=== PATIENT | male | born 1955 | race African-American/Black ===

== ENCOUNTER 2024-08-29 14:33 | Inpatient (IN) | payer BC, MEDICAID ==
[~2024-08-29] VITALS: Ht 200.7 cm; Wt 164.7 kg
[~2024-08-29 14:33] MED LIST: ALBU2.5V13 PO; ALLO300T2 PO; AMI2 PO; APIX5TAB PO; COLC0.6T66 PO; EMPA25TA PO; FURO80TA3 MT; IBUP-2030 MT; INSU100I13 SUBCUT; INSU100I28 SQ; METO2.5T2 PO; POTA-204 PO; SACU1TAB7 PO
[2024-08-29 15:14] LABS: BASOPHILS % 1.5 % (0.0-2.0); DIFFERENTIAL COMMENT 0; EOSINOPHILS % 1.1 % (0.0-5.0); HEMATOCRIT. 47.3 % (42.0-52.0); LYMPHOCYTES % 16.6 % (20.0-50.0); MEAN CORPUSCULAR HEMOGLOBIN 27.3 pg (28.0-32.0); MEAN CORPUSCULAR HGB CONC 31.7 g/dL (31.0-37.0); MEAN CORPUSCULAR VOLUME 86.1 fL (80.0-94.0); MEAN PLATELET VOLUME 9.4 fl (7.4-10.4); MONOCYTES % 13.5 % (2.0-8.0); NEUTROPHILS % 67.3 % (40.0-76.0); PLATELET 203 x1000/uL (130-400); WHITE BLOOD COUNT 3.8 x1000/uL (4.5-11.0)
[2024-08-29 15:21] LABS: POTASSIUM 3.5 mEq/L (3.5-5.1)
[2024-08-29 15:22] LABS: CALCIUM 8.8 mg/dL (8.7-10.4)
[2024-08-29 15:40] LABS: CREATININE 1.7 mg/dL (0.6-1.3)
[2024-08-29 15:55] LABS: TROPONIN I HIGH SENSITIVITY 17 ng/L (3.0-53)
[2024-08-29] MEDS: PIPERACILLIN/TAZO 3.375G/50ML 50 ML IV STA (16:30)
[2024-08-29] MEDS: FUROSEMIDE 40MG/4ML VIAL IVP ONE (16:30)
[2024-08-29] MEDS: VANCOMYCIN 2GM PMX (XELLIA) 400 ML IV NR (17:26)
[2024-08-29 17:29] LABS: LACTIC ACID 2.2 mmol/L (0.4-2.0)
[2024-08-29 18:20] VITALS: BP 138/105; RESP 18; TEMP 36.28068; O2SAT 98
[2024-08-29 20:00] VITALS: BP 152/92; PULSE 76; RESP 20; TEMP 36.2; O2SAT 97
[2024-08-29] MEDS: BLOOD SUGAR DIAGNOSTIC STRIP TEST SCH (20:24)
[2024-08-29] MEDS ORDERED: ACETAMINOPHEN 650MG/20.3ML UDC PO PRN (20:30)
[2024-08-29] MEDS ORDERED: DEXTROSE 50% WATER 50ML SYRINGE IV PRN (21:00)
[2024-08-29] MEDS ORDERED: BLOOD SUGAR DIAGNOSTIC STRIP TEST SCH (21:00)
[2024-08-29] MEDS: FUROSEMIDE 40MG/4ML VIAL IVP SCH (21:25)
[2024-08-29] MEDS: APIXABAN 5 MG TABLET PO SCH (21:25)
[2024-08-29] MEDS: INSULIN LISPRO 100 UNITS/ML SUBCUT SCH (21:27)
[2024-08-29 22:08] VITALS: BP 152/92; PULSE 76; RESP 20; TEMP 36.3
[2024-08-30] VITALS (9 sets, daily range): BP systolic 118–147; BP diastolic 82–101; PULSE 74–81; RESP 18–25; TEMP 36.2–36.7; O2SAT 96–98
[2024-08-30 02:15] LABS: CLARITY URINE CLEAR (CLEAR); COLOR URINE YELLOW (YELLOW); GLUCOSE URINE 3+ (NEGATIVE); KETONES URINE NEGATIVE (NEGATIVE); LEUKOCYTE ESTERASE URINE NEGATIVE (NEGATIVE); NITRITE URINE NEGATIVE (NEGATIVE); OCCULT BLOOD URINE NEGATIVE (NEGATIVE); PROTEIN URINE 1+ (NEGATIVE); SPECIFIC GRAVITY URINE 1.014 (1.005-1.030); UROBILINOGEN URINE 0.2 E.U./dL (0.2-1.0)
[2024-08-30 02:48] LABS: WBC URINE 0-2 /hpf (0-2)
[2024-08-30 03:01] LABS: BACTERIA URINE NONE SEEN; RBC URINE 0-2 /hpf (0-2); SQUAMOUS EPITHELIAL CELL URINE FEW /lpf (RARE/1+)
[2024-08-30] MEDS: PIPERACILLIN/TAZO 3.375G/50ML 50 ML IV SCH (06:09)
[2024-08-30] MEDS: AMIODARONE 200MG TABLET PO SCH ×2 (06:19→20:07)
[2024-08-30 07:26] LABS: CHLORIDE 106 mEq/L (98-107); POTASSIUM 3.3 mEq/L (3.5-5.1); SODIUM 144 mEq/L (136-145)
[2024-08-30 07:28] LABS: CARBON DIOXIDE 27 mEq/L (21-32)
[2024-08-30 07:29] LABS: CALCIUM 9.1 mg/dL (8.7-10.4)
[2024-08-30 07:33] LABS: CREATININE 1.7 mg/dL (0.6-1.3); URIC ACID 6.7 mg/dL (3.7-9.2)
[2024-08-30 07:34] LABS: GLUCOSE 125 mg/dL (70-105); UREA NITROGEN BLOOD 22 mg/dL (9-23)
[2024-08-30 07:35] LABS: ALANINE AMINOTRANSFERASE 18 IU/L (10-49); ALBUMIN 3.6 g/dL (3.2-4.8)
[2024-08-30 07:36] LABS: ASPARTATE AMINOTRANSFERASE 24 IU/L (<34); BILIRUBIN DIRECT 0.9 mg/dL (<=3.0); BILIRUBIN TOTAL 2.1 mg/dL (0.1-1.0); PROTEIN TOTAL 7.1 g/dL (6.0-8.3)
[2024-08-30 07:43] LABS: BASOPHILS % 1.6 % (0.0-2.0); DIFFERENTIAL COMMENT 0; EOSINOPHILS % 2.1 % (0.0-5.0); HEMATOCRIT. 43.8 % (42.0-52.0); HEMOGLOBIN. 14.1 g/dL (14.0-18.0); MEAN CORPUSCULAR HEMOGLOBIN 27.7 pg (28.0-32.0); MEAN CORPUSCULAR HGB CONC 32.3 g/dL (31.0-37.0); MEAN CORPUSCULAR VOLUME 85.8 fL (80.0-94.0); MEAN PLATELET VOLUME 9.3 fl (7.4-10.4); MONOCYTES % 13.8 % (2.0-8.0); NEUTROPHILS % 63.5 % (40.0-76.0); PLATELET 200 x1000/uL (130-400); RED CELL DISTRIBUTION WIDTH 18.3 % (11.6-14.6)
[2024-08-30] MEDS ORDERED: APIXABAN 5 MG TABLET PO SCH (09:00)
[2024-08-30] MEDS: METOLAZONE 2.5MG TABLET PO SCH (10:26)
[2024-08-30] MEDS: SACUBITRIL/VALSARTAN 49MG/51MG TABLET PO SCH (10:26)
[2024-08-30] MEDS: POTASSIUM CHLORIDE 20MEQ TABLET SR PO SCH ×2 (10:26→12:45)
[2024-08-30] MEDS ORDERED: COLCHICINE 0.6MG TABLET PO PRN (12:15)
[2024-08-30] MEDS: EMPAGLIFLOZIN 25MG TABLET PO SCH (12:45)
[2024-08-30] MEDS: ALLOPURINOL 300 MG TABLET PO SCH (12:45)
[2024-08-30] MEDS: ALBUTEROL (0.083%) 2.5MG/3ML NEB INH PRN (13:25)
[2024-08-30] MEDS ORDERED: CLOP75TA33 PO (15:14)
[2024-08-30] MEDS ORDERED: AMI2 PO (16:19)
[2024-08-30] MEDS ORDERED: POTA-354 PO (16:19)
[2024-08-30] MEDS ORDERED: INSU200I SUBCUT (16:20)
[2024-08-30] MEDS ORDERED: IBUP-2030 PO (16:22)
[2024-08-30] MEDS ORDERED: AMMO140C2 TP (16:23)
[2024-08-30] MEDS ORDERED: FURO80TA3 PO (16:45)
[2024-08-30] MEDS: CLOPIDOGREL 75MG TABLET PO SCH (17:50)
[2024-08-30] MEDS ORDERED: POTASSIUM CHLORIDE 20MEQ/PACKET PO ONE (19:00)
[2024-08-30] MEDS: ACETAMINOPHEN 650MG/20.3ML UDC PO PRN (20:06)
[2024-08-30] MEDS: INSULIN GLARGINE 100 UNITS/ML SUBCUT SCH (21:27)
[2024-08-31] VITALS (7 sets, daily range): BP systolic 116–127; BP diastolic 76–92; PULSE 68–80; RESP 18–21; TEMP 36.4–36.7; O2SAT 92–100
[2024-09-01] VITALS (7 sets, daily range): BP systolic 109–127; BP diastolic 70–88; PULSE 75–78; RESP 16–20; TEMP 36.2–37.2; O2SAT 93–100
[2024-09-01 12:26] LABS: HEMATOCRIT. 42.2 % (42.0-52.0); HEMOGLOBIN. 13.6 g/dL (14.0-18.0); MEAN CORPUSCULAR HEMOGLOBIN 27.2 pg (28.0-32.0); MEAN CORPUSCULAR HGB CONC 32.2 g/dL (31.0-37.0); MEAN CORPUSCULAR VOLUME 84.5 fL (80.0-94.0); MEAN PLATELET VOLUME 9.1 fl (7.4-10.4); PLATELET 193 x1000/uL (130-400); RED CELL DISTRIBUTION WIDTH 17.7 % (11.6-14.6)
[2024-09-01 12:30] LABS: CALCIUM 8.7 mg/dL (8.7-10.4)
[2024-09-01 12:35] LABS: CREATININE 1.5 mg/dL (0.6-1.3)
[2024-09-01 12:41] LABS: DIFFERENTIAL COMMENT 1
[2024-09-01 12:48] LABS: POTASSIUM 2.7 mEq/L (3.5-5.1)
[2024-09-01 16:11] LABS: GIANT PLATELETS 1+; PLATELET ESTIMATE NORMAL
[2024-09-01] MEDS: POTASSIUM CHLORIDE 20MEQ TABLET SR PO SCH (16:43)
[2024-09-01] MEDS: SILDENAFIL CITRATE 20MG TABLET PO SCH (22:44)
[2024-09-02] VITALS: BP 129/84; PULSE 76; RESP 19; TEMP 36.8; O2SAT 100
[2024-09-02] MEDS: MAGNESIUM/ALUMINUM HYDROXIDE/SIMETHICONE 30ML UDC PO PRN (00:59)
[2024-09-02 04:00] VITALS: BP 104/68; PULSE 83; RESP 19; TEMP 36.4; O2SAT 100
[2024-09-02 06:57] LABS: CALCIUM 8.7 mg/dL (8.7-10.4)
[2024-09-02 07:01] LABS: CREATININE 1.5 mg/dL (0.6-1.3)
[2024-09-02 07:19] LABS: HEMATOCRIT. 41.6 % (42.0-52.0); HEMOGLOBIN. 13.6 g/dL (14.0-18.0); MEAN CORPUSCULAR HEMOGLOBIN 27.5 pg (28.0-32.0); MEAN CORPUSCULAR HGB CONC 32.6 g/dL (31.0-37.0); MEAN CORPUSCULAR VOLUME 84.4 fL (80.0-94.0); MEAN PLATELET VOLUME 9.3 fl (7.4-10.4); PLATELET 190 x1000/uL (130-400); RED BLOOD CELL COUNT 4.93 mill/uL (4.7-6.1); RED CELL DISTRIBUTION WIDTH 17.2 % (11.6-14.6); WHITE BLOOD COUNT 3.7 x1000/uL (4.5-11.0)
[2024-09-02 07:50] LABS: DIFFERENTIAL COMMENT 1
[2024-09-02 08:00] VITALS: BP 106/65; PULSE 75; RESP 18; TEMP 36.7; O2SAT 95
[2024-09-02 08:51] LABS: BG BASE EXCESS 6.6 mmol/L (-2.0-3.0); BG CARBOXYHEMOGLOBIN 1.1 % (0.5-1.5); BG DEOXYHEMOGLOBIN 2.9 % (0.0-5.0); BG FRACTION INSPIRED OXYGEN 28; BG METHEMOGLOBIN 0.3 % (0.5-1.5); BG OXYGEN SATURATION 97.1 % (94.0-98.0); BG OXYHEMOGLOBIN 95.7 % (94.0-98.0); BG PCO2 38.5 mmHg (35.0-48.0); BG PH 7.509 (7.350-7.450); BG PO2 87.8 mmHg (83.0-108.0); BG SAMPLE SITE RIGHT RADIAL; BG TOTAL HEMOGLOBIN 14.4 g/dL (13.5-17.5); BG VENT MODE NASAL CANNULA
[2024-09-02 10:40] LABS: ANISOCYTOSIS 2+; PLATELET ESTIMATE NORMAL
[2024-09-02 12:00] VITALS: BP 110/74; PULSE 79; RESP 16; TEMP 36.7; O2SAT 98
[2024-09-02 16:00] VITALS: BP 112/73; PULSE 79; RESP 22; TEMP 36.8; O2SAT 96
[2024-09-02 20:00] VITALS: BP 102/58; PULSE 75; RESP 20; TEMP 36.6; O2SAT 96
[2024-09-03] VITALS (7 sets, daily range): BP systolic 104–115; BP diastolic 55–76; PULSE 74–83; RESP 18–22; TEMP 36–36.9; O2SAT 95–100
[2024-09-03 07:43] LABS: POTASSIUM 2.9 mEq/L (3.5-5.1)
[2024-09-03 07:44] LABS: CALCIUM 8.9 mg/dL (8.7-10.4)
[2024-09-03 07:48] LABS: HEMATOCRIT. 45.3 % (42.0-52.0); HEMOGLOBIN. 14.6 g/dL (14.0-18.0); MEAN CORPUSCULAR HEMOGLOBIN 27.6 pg (28.0-32.0); MEAN CORPUSCULAR HGB CONC 32.3 g/dL (31.0-37.0); MEAN CORPUSCULAR VOLUME 85.3 fL (80.0-94.0); MEAN PLATELET VOLUME 9.4 fl (7.4-10.4); PLATELET 211 x1000/uL (130-400); RED BLOOD CELL COUNT 5.31 mill/uL (4.7-6.1); RED CELL DISTRIBUTION WIDTH 17.9 % (11.6-14.6)
[2024-09-03 07:49] LABS: CREATININE 1.5 mg/dL (0.6-1.3)
[2024-09-03 08:19] LABS: DIFFERENTIAL COMMENT 1
[2024-09-03] MEDS ORDERED: ALLO300T2 PO (12:12)
[2024-09-03] MEDS ORDERED: METO2.5T2 PO (12:12)
[2024-09-03] MEDS ORDERED: AMI2 PO (12:12)
[2024-09-03] MEDS ORDERED: REV20 PO (12:12)
[2024-09-03] MEDS ORDERED: APIX5TAB PO (12:12)
[2024-09-03] MEDS ORDERED: CLOP-31 PO (12:12)
[2024-09-03] MEDS ORDERED: FURO-151 MT (12:12)
[2024-09-03] MEDS ORDERED: EMPA25TA PO (12:12)
[2024-09-03] MEDS ORDERED: POTA-204 PO (12:12)
[2024-09-03] MEDS ORDERED: SACU1TAB7 PO (12:12)
[2024-09-03 13:53] LABS: POTASSIUM 3.3 mEq/L (3.5-5.1)
[2024-09-03 14:57] LABS: ANISOCYTOSIS 1+; PLATELET ESTIMATE NORMAL
[2024-09-03] MEDS: POTASSIUM CHLORIDE 20MEQ TABLET SR PO NR (16:17)
== END 2024-09-03 17:20 | disposition home health service (06) | DRG 291 ==
LOC: ER 14:33 → EDBEDREQ 17:02 → EDBEDREQTM 17:02 → 7WST 18:36
PROVIDERS: ADMIT Internal Medicine; ATTEND Internal Medicine
PROC: 5A09357 Assistance with Respiratory Ventilation, Less than 24 Consecutive Hours, Continuous Positive Airway Pressure (ICD-10-PCS; principal; 2024-08-30)
DX: I13.0 Hypertensive heart and chronic kidney disease with heart failure and stage 1 through stage 4 chronic kidney disease, or unspecified chronic kidney disease (principal); I50.23 Acute on chronic systolic (congestive) heart failure; J96.20 Acute and chronic respiratory failure, unspecified whether with hypoxia or hypercapnia; Z68.41 Body mass index [BMI] 40.0-44.9, adult; I42.0 Dilated cardiomyopathy; J44.9 Chronic obstructive pulmonary disease, unspecified; I27.29 Other secondary pulmonary hypertension; E11.22 Type 2 diabetes mellitus with diabetic chronic kidney disease; I25.10 Atherosclerotic heart disease of native coronary artery without angina pectoris; I48.91 Unspecified atrial fibrillation; N18.9 Chronic kidney disease, unspecified; E66.9 Obesity, unspecified; G47.33 Obstructive sleep apnea (adult) (pediatric); I27.81 Cor pulmonale (chronic); I08.1 Rheumatic disorders of both mitral and tricuspid valves; Z95.5 Presence of coronary angioplasty implant and graft; Z79.899 Other long term (current) drug therapy
CPT/HCPCS: 36415; 36600; 71045; 80048; 80076; 81003; 82375; 82805; 82962; 83036; 83605; 83880; 84132; 84145; 84484; 84550; 85025; 93005; 93970; 94070; 94640; 94660; 94664; 94760; 96365; 96375; 98960; 99291; J1815; J1940; J2543; J3370